=== PATIENT | female | born 1950 | race Caucasian/White ===

== ENCOUNTER 2017-10-08 02:31 | Emergency (ER) | payer OTHER ==
[2017-10-08 02:56] VITALS: BP 144/88; PULSE 78; TEMP 98.3; BMI 34.3
--- NOTE | 2017-10-08 03:31 | PDOC ---
History of Present Illness - General Chief Complaint: Shortness of Breath Stated Complaint: DIFFICULTY BREATHING Time Seen by Provider: 10/08/17 03:12 History Source: Patient Exam Limitations: No Limitations - History of Present Illness Initial Comments: This is a 67 YOF with h/o rheumatoid arthritis affecting her lungs, lung biopsy , chest tube placement for evacuation of a pleural effusion (in 2013, found likely inflammatory), and GERD who presents c/o SOB which awoke her from sleep this morning at 1:30 am. She tried using her Albuterol inhaler without relief. She additionally had burning mid-chest pain radiating up to her throat which has persisted despite Pepto-Bismol and milk, both of which normally work for her GERD. The patient has had multiple episodes of SOB over the past several years and has been seen here in the ED for one episode which is described very similarly in her prior EMR. She has previously been admitted to the hospital for these symptoms but never intubated. She is on Prednisone 5 mg/day at baseline and occasionally is placed on courses of higher dose, the most recent being a month ago. Her SOB tends to be exacerbated by exertion. She takes Montelukast in addition to her Albuterol rescue inhaler. She notes nausea and recent bilateral arm swelling d/t her rheumatoid arthritis, but denies any recent fever, chills, vomiting, diarrhea, cough, sore throat, runny nose, abdominal pain, leg swelling, or other symptoms. Past History - Past Medical History Allergies/Adverse Reactions: Allergies Allergy/AdvReac Type Severity Reaction Status Date / Time codeine phosphate AdvReac Mild Vomiting Verified 10/08/17 02:53 [From Codeine Phosphate Soluble] Home Medications: Ambulatory Orders Alendronate Na [Fosamax (Weekly)] 70 mg PO WEEKLY 08/08/14 Aspirin [ASA -] 81 mg PO DAILY 08/08/14 Multivitamins [Multivit ([facility] Formulary)] 1 tab PO DAILY 08/08/14 Methotrexate Sodium [Methotrexate] 1 tab PO DAILY #40 12/29/14 Pantoprazole Sodium 1 tab PO DAILY #30 12/29/14 Prednisone 10 mg PO DAILY tablet 12/29/14 Anemia: No Asthma: No Cancer: No Cardiac Disorders: No CVA: No COPD: No CHF: No Dementia: No Diabetes: Yes (PRE) GI Disorders: Yes (ACID REFLUX; HIATAL HERNIA) Disorders: No HTN: No Hypercholesterolemia: No Liver Disease: No Seizures: No Thyroid Disease: No - Surgical History Abdominal Surgery: Yes (TUMMY TUCK) Appendectomy: No Cardiac Surgery: Yes (THORACIC SX 08/13/14) Cholecystectomy: Yes Lung Surgery: Yes (BIOPSY-BENIGN) Neurologic Surgery: No Orthopedic Surgery: No - Suicide/Smoking/Psychosocial Hx Smoking History: Never smoked Have you smoked in the past 12 months: No Information on smoking cessation initiated: No Hx Alcohol Use: No Drug/Substance Use Hx: No Substance Use Type: None Hx Substance Use Treatment: No Review of Systems - Review of Systems Constitutional: No: Chills, Fever, Unexplained wgt Loss HEENTM: No: Nose Congestion, Throat Pain Respiratory: Yes: Shortness of Breath. No: Cough, Productive cough Cardiac (ROS): Yes: Chest Pain. No: Palpitations ABD/GI: Yes: Nausea. No: Constipated, Diarrhea, Vomiting : No: Burning, Dysuria Musculoskeletal: Yes: Other (arm swelling). No: Back Pain, Neck Pain Integumentary: No: Bruising, Rash Neurological: No: Headache, Numbness, Tingling, Weakness, Dizziness Endocrine: No: Unexplained Weight Gain, Unexplained Weight Loss *Physical Exam - Vital Signs Last Vital Signs Temp Pulse Resp BP Pulse Ox 98.3 F 78 24 144/88 98 10/08/17 02:53 10/08/17 02:53 10/08/17 02:53 10/08/17 02:53 10/08/17 02:53 - Physical Exam General Appearance: Yes: Nourished, Appropriately Dressed, Obese, Other (alert adult female laying upright in hospital bed ). No: Apparent Distress HEENT: positive: EOMI, YAZAN, Normal Voice, Hearing Grossly Normal. negative: Scleral Icterus (R), Scleral Icterus (L), Nasal Congestion Neck: positive: Trachea midline, Supple. negative: Tender, Rigid Respiratory/Chest: positive: Decreased Breath Sounds, Crackles, Wheezing, Other (mildly tachypneic, on O2 mask). negative: Stridor Cardiovascular: positive: Regular Rhythm, Regular Rate. negative: Murmur Gastrointestinal/Abdominal: positive: Normal Bowel Sounds, Soft, Protuberent. negative: Tender, Organomegaly, Pulsatile Mass, Guarding Musculoskeletal: positive: Normal Inspection. negative: Decreased Range of Motion, Vertebral Tenderness Extremity: positive: Normal Capillary Refill, Normal Inspection, Normal Range of Motion. negative: Tender, Cyanosis, Swelling Integumentary: positive: Normal Color, Dry, Warm. 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 Similar prior episodes but usually SOB resolves with Albuterol, usually CP resolves with OTCs. On exam VS wnl, wheezing and crackles on auscultation. DDX IBNLT RA-associated interstitial lung disease, pleural disease, upper or lower airway obstruction, nodules, drug-induced lung toxicity, vasculitis, infection related to immunosuppression, etc. The patient has been followed closely by her provider for RA and has been worked up by pulmonology. Ordered is CBCD, CMP, cardiac panel, BNP, CXR, DuoNeb x2. 10/08/17 06:27 No acute pathology on CXR, nothing acute on EKG. WBC in the 13k's but the patient is on daily Prednisone. Lab work otherwise unremarkable. States she feels 100% better after DuoNeb treatments. Minimal wheezing after DuoNeb treatments. 98% after 20 min on room air, no distress. Patient has rescue inhaler available at home. She states she will follow up with her regular doctor. Return precautions are discussed and she is discharged with family. *DC/Admit/Observation/Transfer Diagnosis at time of Disposition: Wheezing - Discharge Dispostion Disposition: HOME Condition at time of disposition: Stable Admit: No - Referrals - Patient Instructions Additional Instructions: You were seen in the ER for shortness of breath and chest pain. We did blood tests and there were no concerning findings. We did a chest x-ray and an electrocardiogram which had no new concerning findings. We also gave you breathing treatments which helped with your symptoms. Please follow up with your regular doctor to discuss this issue that brought you to the ER today. You can also always return to the ER for any new or worsening symptoms like fever, severe chest pain, shortness of breath that you cannot control with your home medications, or any other symptoms. - Post Discharge Activity
[2017-10-08] MEDS ORDERED: ALBUTEROL SO4 2.5/IPRATROPIUM 0.5 INH SOL 3 ML VIAL.NEB. NEB ONE ×2 (04:07→06:04)
[2017-10-08 04:43] LABS: BASOPHIL 0.7 % (0-2.0); EOSINOPHIL 1.1 % (0-4.5); MCH 23.4 pg (25.7-33.7); MCHC 31.5 g/dl (32.0-36.0); MEAN CELL VOLUME 74.5 fl (80-96); MEAN PLT VOLUME 7.9 fl (7.5-11.1); NEUTROPHILS 69.2 % (42.8-82.8); PLATELET COUNT 424 K/MM3 (134-434); RDW 18.6 % (11.6-15.6); WHITE BLOOD COUNT 13.1 K/mm3 (4.0-10.0)
[2017-10-08] MEDS ORDERED: SODIUM CHLORIDE 0.9% 1000 ML INFUS.BAG IV ONE (05:51)
--- NOTE | 2017-10-08 05:54 | PDOC ---
Attending Attestation - Resident Resident Name: MiraJazz - ED Attending Attestation I have performed the following: I have examined & evaluated the patient, The case was reviewed & discussed with the resident, I agree w/resident's findings & plan - HPI HPI: 10/08/17 05:58 Pt woke up with sudden onset SOB that woke her from sleep 10/08/17 05:58 - Physicial Exam PE: 10/08/17 06:00 Minimal patchy wheeze; pt has no pitting edema; heart sounds normal. Pt has a normal pulsox. - Medical Decision Making 10/08/17 06:02 WBC elevated; chem pending (first one is hemolyzed) 10/08/17 06:26 Pt is feeling vastly improved Patient Name: COLT SPRING THIS IS A PRELIMINARY REPORT FROM IMAGING INCIDENT RESPONSE ANALYST DATE OF SERVICE: 2017-10-08 04:14:17 IMAGES: 3 EXAM: XR CHEST HISTORY: Rheumatoid arthritis. Shortness of breath. COMPARISON: None. FINDINGS: The cardiomediastinal silhouette is normal. The lungs are clear other than minimal bilateral perihilar linear atelectasis. The bones and soft tissues are normal IMPRESSION: No acute pathology. THIS DOCUMENT HAS BEEN ELECTRONICALLY SIGNED
[2017-10-08 06:34] LABS: ALBUMIN 3.2 g/dl (3.4-5.0); ALK PHOS 67 U/L (45-117); ANION GAP 6 (8-16); BILIRUBIN,TOTAL 0.2 mg/dL (0.2-1.0); CALCIUM 8.4 mg/dL (8.5-10.1); CO2 32 mmol/L (21-32); CREATININE 0.8 mg/dL (0.55-1.02); GLUCOSE,RANDOM 109 mg/dL (74-106); SGOT/AST 16 U/L (15-37); SGPT/ALT 24 U/L (12-78); TOT PROT 6.8 g/dl (6.4-8.2)
[2017-10-08 06:36] LABS: CPK 84 IU/L (26-192); TROPONIN I < 0.02 ng/ml (0.00-0.05)
--- NOTE | 2017-10-08 13:39 | EKG ---
Test Reason : Blood Pressure : / mmHG Vent. Rate : 075 BPM Atrial Rate : 075 BPM P-R Int : 166 ms QRS Dur : 074 ms QT Int : 388 ms P-R-T Axes : 048 022 035 degrees QTc Int : 433 ms NORMAL SINUS RHYTHM POSSIBLE LEFT ATRIAL ENLARGEMENT NONSPECIFIC T WAVE ABNORMALITY ABNORMAL ECG WHEN COMPARED WITH ECG OF 18-AUG-2014 22:59, T WAVE VARIATION Confirmed by CELENA DEJESUS MD ([id number]) on 10/08/2017 1:38:54 PM Referred By: Confirmed By:CELENA DEJESUS MD
== END 2017-10-08 06:55 | disposition home or self-care (01) ==
LOC: JER 02:31
PROC: 3E0F7GC Introduction of Other Therapeutic Substance into Respiratory Tract, Via Natural or Artificial Opening (ICD-10-PCS; principal; 2017-10-08)
DX: R06.2 Wheezing (principal); M06.80 Other specified rheumatoid arthritis, unspecified site
CPT/HCPCS: 36415; 71020-TC; 80053; 82550; 83880; 84484; 85025; 93005; 93010; 94640; 99281-25

== ENCOUNTER 2017-10-17 03:31 | Emergency (ER) | payer MEDICARE, OTHER ==
--- NOTE | 2017-10-17 04:00 | PDOC ---
History of Present Illness - General Exam Limitations: No Limitations - History of Present Illness Initial Comments: 10/17/17 05:01 Patient is a 67 year old female with a significant past medical history of rheumatoid arthritis affecting her lungs, lung biopsy, chest tube, hemorrhoids placement for evacuation of a pleural effusion (in 2013, found likely inflammatory), and GERD who presents to the ED with complaints of rectal pain that began yesterday afternoon. Patient reports experiencing diffuse abdominal pain yesterday afternoon while at home. She reports having to strain to pass stool yesterday secondary to abdominal pain. Patient state experiencing rectal pain after initial passing of stool yesterday afternoon. She reports experiencing 3 episodes of soft stool yesterday evening. Patient reports pain is currently rated as a 6/10 in intensity. She reports having a colonoscopy last year that discovered both hemorrhoids and diverticulosis. Denies fever, chills. Denies nausea, vomiting. Denies SOB , chest pain. Denies contact with sick individuals, out of state travel. Denies dysuria, urinary frequency. Denies any other symptoms. Allergies: codeine phosphate. Social history: No smoking. No alcohol. No illicit drugs. Surgical history: Neville holliday Thoracic Sx (08/13/14), PMD: None <Abilio Morse - Last Filed: 10/17/17 05:01> - General History Source: Patient <Noel Gardiner - Last Filed: 10/17/17 19:32> - General Stated Complaint: RECTAL BLEEDING Time Seen by Provider: 10/17/17 04:00 Past History <Abilio Morse - Last Filed: 10/17/17 05:01> - Past Medical History Anemia: No Asthma: No Cancer: No Cardiac Disorders: No CVA: No COPD: No CHF: No Dementia: No Diabetes: Yes (PRE) GI Disorders: Yes (ACID REFLUX; HIATAL HERNIA) Disorders: No HTN: No Hypercholesterolemia: No Liver Disease: No Seizures: No Thyroid Disease: No - Surgical History Abdominal Surgery: Yes ([facility] HOLL[facility]AY) Appendectomy: No Cardiac Surgery: Yes (THORACIC SX 08/13/14) Cholecystectomy: Yes Lung Surgery: Yes (BIOPSY-BENIGN) Neurologic Surgery: No Orthopedic Surgery: No - Suicide/Smoking/Psychosocial Hx Smoking History: Never smoked Have you smoked in the past 12 months: No Hx Alcohol Use: No Drug/Substance Use Hx: No Substance Use Type: None Hx Substance Use Treatment: No <Aminah Gardineran - Last Filed: 10/17/17 19:32> - Past Medical History Allergies/Adverse Reactions: Allergies Allergy/AdvReac Type Severity Reaction Status Date / Time codeine phosphate AdvReac Mild Vomiting Verified 10/08/17 02:53 [From Codeine Phosphate Soluble] Home Medications: Ambulatory Orders Alendronate Na [Fosamax (Weekly)] 70 mg PO WEEKLY 08/08/14 Aspirin [ASA -] 81 mg PO DAILY 08/08/14 Multivitamins [Multivit ([facility] Formulary)] 1 tab PO DAILY 08/08/14 Methotrexate Sodium [Methotrexate] 1 tab PO DAILY #40 12/29/14 Pantoprazole Sodium 1 tab PO DAILY #30 12/29/14 Prednisone 10 mg PO DAILY tablet 12/29/14 Review of Systems - Review of Systems Able to Perform ROS?: Yes Comments:: 10/17/17 05:01 CONSTITUTIONAL: Absent: fever, no chills, no fatigue EYES: Absent: visual changes ENT: Absent: ear pain, no sore throat CARDIOVASCULAR: Absent: chest pain, no palpitations RESPIRATORY: Absent: cough, no SOB GI: +abdominal pain. +Rectal pain. +Rectal bleeding. Absent: no nausea, no vomiting, no constipation, no diarrhea GENITOURINARY: Absent: dysuria, no frequency, no hematuria MUSCULOSKELETAL: Absent: back pain, no arthralgia, no myalgia SKIN: Absent: rash All Other Systems: Reviewed and Negative <Abilio Morse - Last Filed: 10/17/17 05:01> *Physical Exam - Vital Signs Last Vital Signs Temp Pulse Resp BP Pulse Ox 98.7 F 75 18 110/73 96 10/17/17 04:17 10/17/17 04:17 10/17/17 04:17 10/17/17 04:17 10/17/17 04:17 - Physical Exam Comments: 10/17/17 05:02 GENERAL: Well-appearing, well-nourished. No apparent distress. HEENT: Normocephalic, atraumatic. PERRL, EOM intact. CARDIOVASCULAR: Normal S1, S2. Regular rate and rhythm. PULMONARY: Clear to auscultation bilaterally. ABDOMEN: +Mild diffuse tenderness Soft, non-distended, non-tender. EXTREMITIES: Normal ROM in all four extremities. No gross deformities. SKIN: Warm, dry. No rash NEUROLOGICAL: No focal neurological deficits. <Abilio Morse - Last Filed: 10/17/17 05:01> ED Treatment Course - LABORATORY CBC & Chemistry Diagram: 10/17/17 04:45 10/17/17 04:45 <Abilio Morse - Last Filed: 10/17/17 05:01> - LABORATORY CBC & Chemistry Diagram: 10/17/17 04:45 10/17/17 04:45 <Noel Gardiner - Last Filed: 10/17/17 19:32> Medical Decision Making - Medical Decision Making 10/17/17 19:32 Dr. Gardiner: The scribe's documentation has been prepared under my direction and personally reviewed by me in its entirery. I confirm that the note above accurately reflects all work, treatment, procedures, and medical decision making performed by me. <Noel Gardiner - Last Filed: 10/17/17 19:32> *DC/Admit/Observation/Transfer - Attestations Scribe Attestion: 10/17/17 05:02 Documentation prepared by Abilio Morse, acting as forensic medical examiner for Noel Gardiner MD/. <Abilio Morse - Last Filed: 10/17/17 05:01> - Discharge Dispostion Admit: No <Noel Gardiner - Last Filed: 10/17/17 19:32> Diagnosis at time of Disposition: Abdominal pain, Colitis - Discharge Dispostion Disposition: HOME Condition at time of disposition: Stable - Referrals Referrals: Pool Larsen MD [Staff Physician] - - Patient Instructions Printed Discharge Instructions: DI for Abdominal Pain-Adult Additional Instructions: Please call your PMD and schedule a follow up. Please call your flight instructor and schedule a follow up. Please return to the ED with any further complaints.
[2017-10-17] MEDS ORDERED: SODIUM CHLORIDE 1,000 ML IV STA (04:01)
[2017-10-17] MEDS ORDERED: ONDANSETRON 4 MG/2 ML VIAL IVPUSH STA (04:02)
[2017-10-17 04:22] VITALS: BMI 29.8
[2017-10-17 05:00] LABS: BASOPHIL 0.9 % (0-2.0); EOSINOPHIL 1.2 % (0-4.5); MCH 23.2 pg (25.7-33.7); MCHC 31.6 g/dl (32.0-36.0); MEAN CELL VOLUME 73.5 fl (80-96); MEAN PLT VOLUME 7.6 fl (7.5-11.1); NEUTROPHILS 74.6 % (42.8-82.8); PLATELET COUNT 391 K/MM3 (134-434); WHITE BLOOD COUNT 12.7 K/mm3 (4.0-10.0)
[2017-10-17 05:12] LABS: INR 1.19 (0.82-1.09); PROTHROMBIN TIME (PATIENT) 13.4 SEC (9.98-11.88)
[2017-10-17 05:24] LABS: ALBUMIN 3.2 g/dl (3.4-5.0); ALK PHOS 68 U/L (45-117); ANION GAP 9 (8-16); BILIRUBIN,TOTAL 0.5 mg/dL (0.2-1.0); CALCIUM 8.7 mg/dL (8.5-10.1); CO2 29 mmol/L (21-32); CREATININE 0.8 mg/dL (0.55-1.02); GLUCOSE,RANDOM 89 mg/dL (74-106); SGPT/ALT 32 U/L (12-78); TOT PROT 7.5 g/dl (6.4-8.2)
[2017-10-17 05:29] LABS: MAGNESIUM 2.2 mg/dL (1.8-2.4); SGOT/AST 27 U/L (15-37)
--- NOTE | 2017-10-17 07:30 | PDOC ---
*Physical Exam - Vital Signs Last Vital Signs Temp Pulse Resp BP Pulse Ox 98.7 F 75 18 110/73 96 10/17/17 04:17 10/17/17 04:17 10/17/17 04:21 10/17/17 04:17 10/17/17 04:21 - Physical Exam Comments: 10/17/17 07:25 gen: aaox3, nad heart: +s1s2 reg Lungs: cta b/l abd: soft, nt/nd +bs Ext: no c/c/e neuro: no focal neuro deficits. ED Treatment Course - LABORATORY CBC & Chemistry Diagram: 10/17/17 04:45 10/17/17 04:45 - ADDITIONAL ORDERS Additional order review: Laboratory Results 10/17/17 10/17/17 10/17/17 04:45 04:45 04:45 PT with INR 13.40 H INR 1.19 H Sodium 140 Potassium 4.6 Chloride 102 Carbon Dioxide 29 Anion Gap 9 BUN 11 D Creatinine 0.8 Creat Clearance w eGFR > 60 Random Glucose 89 Calcium 8.7 Magnesium 2.2 Total Bilirubin 0.5 D AST 27 D ALT 32 D Alkaline Phosphatase 68 Total Protein 7.5 Albumin 3.2 L Lipase 197 Blood Type A POSITIVE Antibody Screen Negative 10/17/17 04:45 RBC 4.94 MCV 73.5 L MCHC 31.6 L RDW 19.0 H MPV 7.6 Neutrophils % 74.6 Lymphocytes % 16.2 D Monocytes % 7.1 Eosinophils % 1.2 Basophils % 0.9 - Medications Given in the ED: ED Medications Discontinued Medications Generic Name Dose Route Start Last Admin Trade Name Freq PRN Reason Stop Dose Admin Sodium Chloride 1,000 mls @ 1,000 mls/hr 10/17/17 04:01 10/17/17 05:03 Normal Saline - IV 10/17/17 05:00 1,000 mls/hr ASDIR STA Administration Ondansetron HCl 4 mg 10/17/17 04:02 10/17/17 05:03 Zofran Injection IVPUSH 10/17/17 04:03 4 mg ONCE STA Administration Medical Decision Making - Medical Decision Making 10/17/17 07:26 a/p: 67yo female with abd pain -pt signed out pending ct and labs -ct shows diverticulosis without diverticulitis, no bowel obstruction/free fluid /free air, normal appendix -labs reviewed. -ct reviewed with the patient. -[facility] -pt denies pain at this time -no abd pain or rectal pain -labs reviewed -pt tolerated po intake in the ED -pt and understand all reasons to return to the ED and need for follow up -pt stable for d/c to home -discussed all reasons to return to the ED and need for follow up *DC/Admit/Observation/Transfer Diagnosis at time of Disposition: Abdominal pain - Discharge Dispostion Disposition: HOME Condition at time of disposition: Stable Admit: No - Referrals Referrals: Pool Larsen MD [Staff Physician] - - Patient Instructions Printed Discharge Instructions: DI for Abdominal Pain-Adult Additional Instructions: Please call your PMD and schedule a follow up. Please call your director of culture and schedule a follow up. Please return to the ED with any further complaints. - Post Discharge Activity
[2017-10-17 07:32] LABS: URINE APPEARANCE CLEAR; URINE BILIRUBIN NEGATIVE (NEGATIVE); URINE BLOOD 1+ (NEGATIVE); URINE COLOR STRAW; URINE GLUCOSE (UA) NEGATIVE (NEGATIVE); URINE KETONE NEGATIVE (NEGATIVE); URINE NITRITE NEGATIVE (NEGATIVE); URINE PROTEIN NEGATIVE (NEGATIVE); URINE UROBILINOGEN NEGATIVE mg/dL (0.2-1.0)
[2017-10-17 07:47] VITALS: BP 122/83; PULSE 86; TEMP 97.7
[2017-10-17 08:27] LABS: URINE BACTERIA RARE /hpf (NONE SEEN); URINE RBC 1 /hpf (0-3); URINE WBC 5 /hpf (3-5)
[2017-10-17 13:15] LABS: URINE LEUK ESTERASE 3+ (NEGATIVE)
== END 2017-10-17 07:56 | disposition home or self-care (01) ==
LOC: JER 03:31
PROC: 3E033GC Introduction of Other Therapeutic Substance into Peripheral Vein, Percutaneous Approach (ICD-10-PCS; principal; 2017-10-17)
DX: K52.89 Other specified noninfective gastroenteritis and colitis (principal); M06.9 Rheumatoid arthritis, unspecified
CPT/HCPCS: 36415; 74176-TC; 80053; 81003; 81015; 83690; 83735; 85025; 85610; 86850; 86900; 86901; 96374; 99283-25

== ENCOUNTER 2024-10-13 06:12 | Day surgery (SDC) | payer OTHER ==
[2024-10-03 16:05] VITALS: BMI 33.6
[2024-10-13] MEDS ORDERED: VANCOMYCIN 1,000 MG VIAL (RESTRICTED TO ID ONLY) ONE ×2 (06:57→07:42)
[2024-10-13] MEDS ORDERED: ONDANSETRON 4 MG/2 ML VIAL ONE (06:57)
[2024-10-13] MEDS ORDERED: SODIUM CHLORIDE 0.9% P/F 10 ML VIAL IJ ONE (06:57)
[2024-10-13] MEDS ORDERED: METOCLOPRAMIDE HCL INJECTION 10 MG/2 ML VIAL ONE (06:57)
[2024-10-13] MEDS ORDERED: DEXAMETHASONE SOD PHOSPHATE 4 MG/1 ML VIAL ONE (06:57)
[2024-10-13] MEDS ORDERED: ceFAZolin SODIUM 1 GM VIAL ONE (06:57)
[2024-10-13] MEDS ORDERED: TRANEXAMIC ACID 1000 MG/10 ML VIAL ONE ×2 (06:57→09:16)
[2024-10-13] MEDS ORDERED: SUCCINYLCHOLINE CHLORIDE 200 MG/10 ML SYRINGE ONE (06:59)
[2024-10-13] MEDS ORDERED: PROPOFOL 60 ML ONE (06:59)
[2024-10-13] MEDS ORDERED: BUPIVACAINE HCL/PF 0.5% (5 MG/ML) 30 ML VIAL IJ ONE (07:02)
[2024-10-13] MEDS ORDERED: MIDAZOLAM HCL 2 MG/2 ML SINGLE DOSE VIAL ONE ×2 (07:03→08:35)
[2024-10-13] MEDS ORDERED: FENTANYL CITRATE/PF 50 MCG/ML VIAL ONE (07:03)
[2024-10-13] MEDS ORDERED: BUPIVACAINE LIPOSOME/PF (EXPAREL) 266 MG/20 ML VIAL ONE (07:03)
[2024-10-13] MEDS ORDERED: ONDANSETRON 4 MG/2 ML VIAL IVPUSH PRN ×2 (08:57→10:22)
[2024-10-13] MEDS ORDERED: NALOXONE HCL 0.4 MG/ML VIAL IVPUSH PRN (08:58)
[2024-10-13] MEDS ORDERED: ACETAMINOPHEN INJECTION 100 ML ONE (08:58)
[2024-10-13] MEDS ORDERED: ALBUTEROL SO4 HFA INHALER IH PRN (09:13)
[2024-10-13] MEDS ORDERED: ONDANSETRON 4 MG TABLET PO PRN (09:13)
[2024-10-13] MEDS ORDERED: BUPIVICAINE 0.25%/MORPH PF/KETOROLAC - 51ML DISP.SYRINGE IA ONE (09:15)
[2024-10-13] MEDS: VANCOMYCIN 1,000 MG VIAL (RESTRICTED TO ID ONLY) IVPB ONE (09:24)
[2024-10-13] MEDS: KETOROLAC TROMETHAMINE 30 MG/1 ML VIAL IM ONE ×2 (09:36)
[2024-10-13] MEDS: BUPIVACAINE HCL/PF 0.25% (2.5MG/ML) 10 ML VIAL IJ ONE ×2 (09:36)
[2024-10-13] MEDS: morphine SULFATE/PF 1 MG/2 ML (2cc Syringe - QUVA) IV ONE ×2 (09:36)
[2024-10-13] MEDS ORDERED: MAG HYDROX/AL HYDROX/SIMETH 30 ML UNIT-DOSE CUP PO PRN (10:22)
[2024-10-13] MEDS: FAMOTIDINE 20 MG TABLET PO SCH (11:00)
[2024-10-13] MEDS: SENNOSIDES/DOCUSATE COMBO (SENNA PLUS) TABLET (UD) PO SCH (11:00)
[2024-10-13] MEDS: ATORVASTATIN CA 20 MG TABLET (FP) PO SCH (11:00)
[2024-10-13] MEDS: MONTELUKAST NA 10 MG TABLET PO SCH (11:00)
[2024-10-13] MEDS: AMITRIPTYLINE HCL 25 MG TABLET PO SCH (11:00)
[2024-10-13] MEDS: ACETAMINOPHEN 500 MG TABLET (FP) PO SCH ×2 (12:10→15:06)
[2024-10-13] MEDS: ADALIMUMAB 40 MG/0.8 ML SQ SCH (12:10)
[2024-10-13] MEDS: LACTATED RINGERS SOLUTION 1,000 ML IV SCH ×2 (12:10→12:11)
[2024-10-13] MEDS: DOCUSATE SODIUM 100 MG CAPSULE (FP) PO SCH (12:11)
[2024-10-13] MEDS ORDERED: oxyCODONE HCL 5 MG TABLET PO PRN (14:48)
[2024-10-13] MEDS: CEFAZOLIN 2 GM/D5W 2 GM/50 ML ML IVPB SCH (17:15)
[2024-10-13] MEDS: oxyCODONE HCL 5 MG TABLET PO PRN (19:57)
[2024-10-13 20:06] VITALS: RESP 18
[2024-10-13] MEDS: BUDESONIDE/FORMETEROL FUMARATE 80/4.5 mcg INHALER IH SCH (23:45)
[2024-10-14 08:52] LABS: HEMATOCRIT 31.5 % (32.4-45.2); MCH 26.1 pg (25.7-33.7); MCHC 31.7 g/dl (32.0-36.0); MEAN CELL VOLUME 82.5 fl (80-96); MEAN PLT VOLUME 8.6 fl (7.5-11.1); PLATELET COUNT 279.4 10^3/uL (134-434); RBC 3.82 10^6/uL (3.60-5.2); RDW 16.4 % (11.6-15.6); WHITE BLOOD COUNT 16.9 10^3/uL (4.0-10.8)
[2024-10-14 09:28] LABS: CALCIUM 8.7 mg/dl (8.5-10.1); CREATININE 0.7 mg/dl (0.6-1.3)
[2024-10-14] MEDS ORDERED: MULTIVITAMINS (DAILY MVI) TABLET (FP) PO SCH (10:00)
[2024-10-14] MEDS: ASPIRIN COATED 81 MG TABLET.EC PO SCH (10:20)
[2024-10-14] MEDS: FOLIC ACID 1 MG TABLET (FP) PO SCH (10:21)
[2024-10-14] MEDS: MULTIVITAMINS (DAILY MVI) TABLET (FP) PO SCH (10:21)
[2024-10-14] MEDS: PANTOPRAZOLE 40 MG TABLET PO SCH (10:22)
[2024-10-14 12:13] VITALS: BP 132/72; PULSE 62; TEMP 98.1
[2024-10-17] MEDS ORDERED: ERGOCALCIFEROL (VIT D2) 50,000 UNIT (1.25 MG) CAPSULE PO SCH (10:00)
== END 2024-10-14 16:32 | disposition home or self-care (01) ==
LOC: SUATTDRO 06:12 → FASUSAT 06:12 → FM/S 11:49 → FASUSAT 10-14 16:32
PROC: 8E0Y0CZ Robotic Assisted Procedure of Lower Extremity, Open Approach (ICD-10-PCS; 2024-10-13)
PROC: 0SRC0JA Replacement of Right Knee Joint with Synthetic Substitute, Uncemented, Open Approach (ICD-10-PCS; principal; 2024-10-13 08:43)
DX: M17.11 Unilateral primary osteoarthritis, right knee (principal)
CPT/HCPCS: 20985; 27447; C1776; S2900; 36415; 73560-TC-RT-FY; 80048; 85027; 88305-TC; 88311-TC; 94760; 97010-GP; 97116-GP; 97162-GP; J0131

== ENCOUNTER 2025-06-30 06:48 | Inpatient (IN) | payer OTHER ==
[2025-06-25 15:26] VITALS: BMI 33.6
[2025-06-30] MEDS ORDERED: VANCOMYCIN 1,000 MG VIAL (RESTRICTED TO ID ONLY) ONE ×2 (07:18→09:39)
[2025-06-30] MEDS ORDERED: LIDOCAINE HCL 2% 100 MG/5 ML DISP.SYRIN ONE (08:42)
[2025-06-30] MEDS ORDERED: WATER FOR INJ,STERILE 10 ML ONE (08:45)
[2025-06-30] MEDS ORDERED: ROPIVACAINE HCL 0.5% 30ML VIAL ONE ×2 (08:45→08:47)
[2025-06-30] MEDS ORDERED: DEXAMETHASONE SOD PHOSPHATE 10 MG/1 ML VIAL ONE (08:45)
[2025-06-30] MEDS ORDERED: MIDAZOLAM HCL 2 MG/2 ML SINGLE DOSE VIAL ONE ×2 (09:03→09:33)
[2025-06-30] MEDS ORDERED: TRANEXAMIC ACID 1000 MG/10 ML VIAL ONE ×2 (09:36→10:12)
[2025-06-30] MEDS ORDERED: PROPOFOL 20 ML ONE (09:37)
[2025-06-30] MEDS ORDERED: ONDANSETRON 4 MG/2 ML VIAL IVPUSH PRN (10:20)
[2025-06-30] MEDS ORDERED: ACETAMINOPHEN 1000 MG/100 ML BAG IVPB PRN (10:21)
[2025-06-30] MEDS ORDERED: BUPIVICAINE 0.25%/MORPH PF/KETOROLAC - 51ML DISP.SYRINGE IA ONE (10:29)
[2025-06-30] MEDS ORDERED: KETOROLAC TROMETHAMINE 60 MG/2 ML VIAL ONE (10:32)
[2025-06-30] MEDS: BUPIVICAINE 0.25%/MORPH PF/KETOROLAC - 51ML DISP.SYRINGE IA ONE (10:43)
[2025-06-30] MEDS ORDERED: [UNRECOGNIZED DRUG - OTHER] IA ONE (11:00)
[2025-06-30] MEDS ORDERED: MAG HYDROX/AL HYDROX/SIMETH 30 ML UNIT-DOSE CUP PO PRN (11:15)
[2025-06-30] MEDS ORDERED: ONDANSETRON 4 MG TABLET PO PRN (11:18)
[2025-06-30] MEDS ORDERED: ERGOCALCIFEROL (VIT D2) 50,000 UNIT (1.25 MG) CAPSULE PO SCH (11:30)
[2025-06-30] MEDS ORDERED: ADALIMUMAB 40 MG/0.8 ML SQ SCH (11:30)
[2025-06-30] MEDS: LACTATED RINGERS SOLUTION 1,000 ML IV SCH ×2 (11:59→17:13)
[2025-06-30] MEDS ORDERED: CEFAZOLIN 2 GM in DEXTROSE 5%-WATER - 50 ML IVPB SCH (17:35)
[2025-06-30] MEDS: CEFAZOLIN 2 GM/D5W 2 GM/50 ML ML IVPB SCH (18:20)
[2025-06-30] MEDS: FAMOTIDINE 20 MG TABLET PO SCH (21:40)
[2025-06-30] MEDS: GABAPENTIN 300 MG CAPSULE PO SCH (21:40)
[2025-06-30] MEDS: METOPROLOL TARTRATE 25 MG TABLET (FP) PO SCH (21:40)
[2025-06-30] MEDS: MONTELUKAST NA 10 MG TABLET PO SCH (21:40)
[2025-06-30] MEDS: ATORVASTATIN CA 20 MG TABLET (FP) PO SCH (21:40)
[2025-06-30] MEDS: SENNOSIDES/DOCUSATE COMBO (SENNA PLUS) TABLET (UD) PO SCH (21:40)
[2025-06-30] MEDS: AMITRIPTYLINE HCL 25 MG TABLET PO SCH (21:41)
[2025-06-30] MEDS: ONDANSETRON 4 MG/2 ML VIAL IVPUSH PRN (22:50)
[2025-06-30] MEDS: ALBUTEROL SO4 HFA INHALER IH PRN (23:10)
[2025-06-30] MEDS: KETOROLAC TROMETHAMINE 30 MG/1 ML VIAL IVPUSH SCH (23:42)
[2025-06-30] MEDS: ACETAMINOPHEN 1000 MG/100 ML BAG IVPB ONE (23:42)
[2025-06-30] MEDS: ACETAMINOPHEN 500 MG TABLET (FP) PO SCH (23:42)
[2025-07-01 08:00] LABS: MCHC 31.8 g/dl (32.2-35.5); MEAN CELL VOLUME 80.1 fl (79.4-94.8); MEAN PLT VOLUME 10.4 fl (9.4-12.3); RDW 16.9 % (12.4-16.6)
[2025-07-01] MEDS: ACETAMINOPHEN 1000 MG/100 ML BAG IVPB SCH (09:00)
[2025-07-01 09:03] LABS: CO2 29.0 mmol/L (21-32); CREATININE 0.6 mg/dl (0.6-1.3); GLUCOSE,RANDOM 134.0 mg/dl (74-106)
[2025-07-01] MEDS: PANTOPRAZOLE 40 MG TABLET PO SCH (09:05)
[2025-07-01] MEDS: FOLIC ACID 1 MG TABLET (FP) PO SCH (09:05)
[2025-07-01] MEDS: BUDESONIDE/FORMETEROL FUMARATE 80/4.5 mcg INHALER IH SCH (09:05)
[2025-07-01] MEDS: MULTIVITAMINS (DAILY MVI) TABLET (FP) PO SCH (09:06)
[2025-07-01] MEDS ORDERED: ASPIRIN COATED 81 MG TABLET.EC PO SCH ×2 (10:00)
[2025-07-01] MEDS ORDERED: MULTIVITAMINS (DAILY MVI) TABLET (FP) PO SCH (10:00)
[2025-07-01] MEDS: ASPIRIN COATED 81 MG TABLET.EC PO SCH (10:09)
[2025-07-01 22:46] VITALS: RESP 18
[2025-07-02 08:02] LABS: MCHC 31.5 g/dl (32.2-35.5); MEAN CELL VOLUME 80.9 fl (79.4-94.8); MEAN PLT VOLUME 10.9 fl (9.4-12.3); RDW 17.1 % (12.4-16.6)
[2025-07-02] MEDS: KETOROLAC TROMETHAMINE 30 MG/1 ML VIAL IVPUSH PRN (09:39)
[2025-07-02] MEDS ORDERED: ONDANSETRON *ODT* 4 MG TABLET SL PRN (09:44)
[2025-07-02 14:53] VITALS: BP 102/78; PULSE 63; TEMP 97.5
== END 2025-07-02 16:05 | disposition home health service (06) | DRG 470 ==
LOC: FASUSAT 06:48 → FM/S 12:14 → FASUSAT 07-01 20:51
PROVIDERS: ADMIT Internal Medicine; ATTEND Internal Medicine
PROC: 0SRD0JZ Replacement of Left Knee Joint with Synthetic Substitute, Open Approach (ICD-10-PCS; principal; 2025-06-30 09:53)
DX: M17.12 Unilateral primary osteoarthritis, left knee (principal)
CPT/HCPCS: 36415; 73560-TC-LT-FY; 80048; 85027; 88305-TC; 88311-TC; 88312-TC; 94760; 97010-GP; 97116-GP; 97162-GP; C1776; J1100